=== PATIENT | female | born 1950 | race Caucasian/White ===

== ENCOUNTER 2019-05-05 15:20 | Inpatient (IN) | payer MEDICARE, OTHER ==
[2019-05-05] MEDS ORDERED: Morphine 4 MG/ML VIAL ONE ×2 (16:00→16:28)
[2019-05-05] MEDS ORDERED: Lidocaine 1% w/Epinephrine 1:100K 20 ML VIAL ONE (16:00)
[2019-05-05] MEDS ORDERED: Ketorolac Tromethamine 30 MG/ML VIAL ONE ×2 (16:00→21:22)
--- NOTE | 2019-05-05 16:06 | CT ---
CT HEAD WITHOUT CONTRAST: Technique: Axial tomograms were obtained without IV enhancement. Indications: Fall with head injury. Patient is awake and alert. Trauma evaluation. FINDINGS: There is acute subarachnoid hemorrhage in the anterior right frontal lobe. There may be a small focus of parenchymal hemorrhage within the anterior right cortex. There is also evidence of some subarachnoid hemorrhage in the left para Sylvian cortex. No other hemorrhage. Ventricles have normal size and position. No mass effect. The paranasal sinuses appear well aerated and clear. No evidence of skull fracture identified. IMPRESSION: 1. Acute subarachnoid hemorrhage in the anterior right frontal lobe with possible small parenchymal h emorrhage within the anterior cortex. 2. Subtle subarachnoid hemorrhage in the left para Sylvian region. 3. Findings relayed to Dr. Wade. Code CR. POS: [facility]
--- NOTE | 2019-05-05 16:29 | RAD ---
Left wrist 3 views HISTORY: Injury. FINDINGS: Scaphoid waist and ulnar styloid are intact. Impacted fracture of the distal radius involve s primarily the lateral cortex. No evidence of intra-articular extension. Dorsal tilt is neutral. Radial inclination is maintained. Osteoarthritic changes are most pronounced at the first carpometacarpal joint. IMPRESSION: Impacted distal left radial fracture.
--- NOTE | 2019-05-05 16:29 | RAD ---
EXAM: 2 views of the left hip HISTORY: Left hip pain after fall COMPARISON: None FINDINGS: 2 views of the left hip shows a mildly displaced intertrochanteric femur fracture. No degen erative changes are seen. No soft tissue swelling is present. IMPRESSION: Left intertrochanteric femur fracture
[2019-05-05 16:32] LABS: #Eosinphils 0.1 thou/uL (0.0-0.7); #Lymphocytes 0.6 thou/uL (1.20-3.40); #Monocytes 0.5 thou/uL (0.11-0.59); #Neutrophils 4.8 thou/uL (1.40-6.50); %Basophils 0.5 % (0.0-1.0); %Eosinophils 1.6 % (0.0-10.0); %Lymphocytes 9.8 % (21.0-51.0); %Monocytes 8.1 % (0.0-10.0); Hemoglobin 11.1 g/dL (12.0-16.0); Mean Corpuscular HGB CONC 34.2 g/dL (32.0-36.0); Mean Corpuscular Hemoglobin 34.7 pg (27.0-31.0); Mean Platelet Volume 12.1 fL (7.4-10.4); Platelet Count 31 thou/uL (130-400); RBC Distribution Width 18.1 % (11.5-14.5); Red Blood Cell (RBC) Count 3.19 mill/uL (4.20-5.40)
[2019-05-05 16:43] LABS: INR-International Normal Ratio 0.9; PTT 22.5 SEC (22.9-36.1); Prothrombin Time 12.3 SEC (12.0-14.7)
[2019-05-05 16:45] LABS: Anisocytosis SLIGHT = 6-15 cells (100X) (0-5/hpf); Basophilic Stippling SLIGHT = 1-2 cells (100X) (None Seen); MDiff Complete? YES; Macrocytosis SLIGHT = 6-15 cells (100X) (0-5/hpf); Platelet Morphology Comment Appears Decreased; Polychromasia SLIGHT = 2-3 cells (100X) (0-2/hpf); Tear Drops SLIGHT = 2-5 cells (100X) (0-1/hpf)
[2019-05-05 16:50] LABS: ALT (SGPT) 52 U/L (8-55); AST (SGOT) 23 U/L (5-34); Albumin 3.6 g/dL (3.4-4.8); Alkaline Phosphatase 271 U/L (40-110); Anion Gap 14 mmol/L (10-20); BUN (Urea Nitrogen) 13 mg/dL (9.8-20.1); Calc. Creatinine Clearance 0 mL/min (70-130); Carbon Dioxide 28 mmol/L (23-31); Chloride 99 mmol/L (98-107); Estimated GFR-MDRD 75; Globulin 1.9 g/dL (2.4-3.5); Glucose 342 mg/dL (80-115); Potassium 4.7 mmol/L (3.5-5.1); Protein, Total 5.5 g/dL (6.0-8.3); Sodium 136 mmol/L (136-145)
--- NOTE | 2019-05-05 16:50 | RAD ---
AP PELVIS: Indications: Trauma with injury to left hip. FINDINGS: There is an intertrochanteric fracture involving the left hip. Degenerative changes at both hips with moderate spurring from the left femoral head. Pelvis appears intact. IMPRESSION: Left hip fracture. POS: [facility]
[2019-05-05] MEDS ORDERED: hydrALAZINE 20 MG/ML VIAL SLOW IVP PRN (17:35)
[2019-05-05] MEDS ORDERED: Ondansetron PF 4 MG/2 ML Vial IVP PRN (17:35)
[2019-05-05] MEDS ORDERED: Dextrose 50% Abboject 50 ML SYRINGE SLOW IVP PRN (17:35)
[2019-05-05] MEDS ORDERED: HumaLOG 300 UNITS/3 ML VIAL SC PRN (17:35)
[2019-05-05] MEDS ORDERED: Dextrose 5% in Water 1,000 ML IV PRN (17:35)
[2019-05-05] MEDS ORDERED: traMADol HCl 50 MG TAB PO PRN (17:39)
[2019-05-05] MEDS ORDERED: Diazepam 10 MG/2 ML SYRINGE ONE (18:28)
[2019-05-05] MEDS ORDERED: Ondansetron PF 4 MG/2 ML Vial ONE (18:28)
--- NOTE | 2019-05-05 21:02 | CON ---
DATE OF CONSULTATION: 05/05/2019 This is Bola Dover PA-C dictating a report for Iam Solomon MD. REQUESTING PHYSICIAN: Robert Kennedy DO. CONSULTING PHYSICIAN: Iam Solomon MD REASON FOR CONSULTATION: Left two-part intertrochanteric hip fracture and left distal radius metaphyseal nondisplaced Colles fracture. BRIEF CLINICAL HISTORY: Ayana is a 68-year-old female who fell on an outstretched left arm while stepping up over a curb earlier this morning. She was brought to [facility] via EMS for complaints of left hip pain and left forearm pain. Plain radiographs demonstrated a two-part minimally displaced intertrochanteric hip fracture on the left and a nondisplaced distal radius metaphyseal fracture on the left. Our service has been consulted for both of these injuries. She has also had a right frontal subarachnoid hemorrhage, which is small and localized, and Neurosurgery has been consulted to evaluate that. PAST MEDICAL HISTORY: Significant for chronic myelogenous leukemia, and she recently received a stem cell transplant on 11/29/2018. She has suffered from thrombocytopenia for quite some time now. She is being actively treated for the leukemia. PAST SURGICAL HISTORY: Cholecystectomy. MEDICATION: Please see medication reconciliation list. ALLERGIES: NO KNOWN DRUG ALLERGIES. PHYSICAL EXAMINATION: This elderly frail-appearing female, in no apparent distress. She appears comfortable and appropriate and responsive with examiner, grossly nonfocal. Visual inspection of the left upper extremity demonstrates her to have a bruise over the dorsal forearm with tenderness to palpation after removal of temporary splint. She also has some abrasions over the 4th and 5th MCP joints dorsally, but no angular deformity. She is neurovascularly intact. Good radial pulse. She has good digital excursion. Visual inspection of left lower extremity demonstrates normal external landmarks. There is no shortening or external rotation noted. She is neurovascularly intact in left lower extremity. Hip exam is deferred due to known underlying fracture. Knee exam is essentially benign. No fasciculations or atrophy. No dorsal weakness is noted. IMAGING STUDIES: Three views left wrist demonstrate a [id number] nondisplaced distal radius metaphyseal fracture with little bit of cortical comminution dorsally, but no changes in anatomic reduction. Satisfactory position is appreciated on lateral view. No apex dorsal or volar is appreciated. Two views left hip demonstrate a nondisplaced intertrochanteric hip fracture on the left. IMPRESSION: 1. Left two-part intertrochanteric hip fracture, nondisplaced. 2. Left distal radius metaphyseal fracture, nondisplaced (Colles fracture). PLAN: 1. I placed her in a dorsal cock-up left volar splint now. 2. The risks, benefits, options, alternatives, and rationale for proceeding with open versus closed reduction of the left hip with a dynamic hip screw versus short trochanteric nail fixation has been explained in great detail to the patient, she is ready to proceed. All questions were answered. No guarantee of outcome stated or implied. 3. The patient will be posted for tomorrow. Job ID: [id number]
[2019-05-05] MEDS ORDERED: Cyclobenzaprine 10 MG TAB ONE (21:22)
--- NOTE | 2019-05-05 21:49 | CT ---
CT Brain WO Con HISTORY: Follow-up of intracranial hemorrhage. Status post head injury. COMPARISON: Exam done earlier today. FINDINGS: There is mild ventricular and sulcal prominence. The subarachnoid blood in the right fronta l lobe is again demonstrated it is felt to be fairly similar to the previous exam. Questionable small focus of subarachnoid blood along the left sylvian fissure again noted. IMPRESSION: Essentially stable exam. Subarachnoid blood is similar to the previous study.
[2019-05-05] MEDS: traMADol HCl 50 MG TAB PO PRN (22:36)
[2019-05-05] MEDS: Gabapentin 300 MG CAP PO SCH (22:36)
[2019-05-05] MEDS: Acetaminophen 500 MG TAB PO SCH ×2 (22:36→23:30)
[2019-05-05] MEDS: Famotidine/PF 20 mg/2ml Vial SLOW IVP SCH (23:29)
[2019-05-05] MEDS: Sodium Chloride 0.9% 1,000 ML IV SCH (23:30)
[2019-05-05] MEDS: Senokot S 8.6-50 MG TAB PO SCH (23:30)
[2019-05-05] MEDS ORDERED: Hydrocortisone Sod Succ/PF 100 mg/2 ml Vial IVP SCH (23:45)
[2019-05-06] MEDS ORDERED: Lidocaine 5% Patch TD PRN (00:31)
[2019-05-06] MEDS ORDERED: Lidocaine Patch Removal TOP PRN (00:42)
--- NOTE | 2019-05-06 01:03 | PRG ---
DATE OF SERVICE: 05/06/2019 SUBJECTIVE: The patient is status post ground level fall, when she sustained a left distal radius fracture and a left intertrochanteric femur fracture. The patient's past medical history is significant for stem cell transplant for leukemia. She is currently awaiting surgery. Due to her thrombocytopenia, her surgery has been delayed until tomorrow. Physical exam, the patient was seen in the Emergency Department as her room in upstairs was not available yet. She is resting comfortably. OBJECTIVE: VITAL SIGNS: Stable, and she is afebrile. GENERAL: The patient is resting comfortably in bed. She is awake, alert, conversant, and appropriate. [place] Coma Scale is 15. LUNGS: Clear to auscultation bilaterally. HEART: Regular rate and rhythm. ABDOMEN: Soft, flat, nontender with hypoactive bowel sounds. EXTREMITIES: Neurovascularly intact x4. ASSESSMENT: 1. Status post ground level fall. 2. Left distal radius fracture, nondisplaced being treated conservatively. 3. Left two-part intertrochanteric hip fracture, nondisplaced, awaiting surgery tomorrow. 4. History of leukemia, stem cell transplant, thrombocytopenia. PLAN: Plan will be to monitor her labs, repeat in the morning. She did receive a unit of platelets here in the Emergency Department. Postoperatively, we will begin physical and occupational therapy and discuss placement. Job ID: [id number]
[2019-05-06 02:39] VITALS: BMI 18.7
[2019-05-06 05:46] LABS: #Lymphocytes 0.3 thou/uL (1.20-3.40); #Monocytes 0.4 thou/uL (0.11-0.59); #Neutrophils 3.7 thou/uL (1.40-6.50); %Eosinophils 0.6 % (0.0-10.0); %Lymphocytes 6.4 % (21.0-51.0); %Monocytes 9.1 % (0.0-10.0); %Neutrophils 83.8 % (42.0-75.0); Hemoglobin 6.9 g/dL (12.0-16.0); Mean Corpuscular HGB CONC 34.6 g/dL (32.0-36.0); Mean Corpuscular Hemoglobin 35.4 pg (27.0-31.0); Mean Platelet Volume 8.9 fL (7.4-10.4); Platelet Count 39 thou/uL (130-400); RBC Distribution Width 17.7 % (11.5-14.5); Red Blood Cell (RBC) Count 1.96 mill/uL (4.20-5.40); White Blood Cell (WBC) Count 4.4 thou/uL (4.8-10.8)
[2019-05-06] MEDS ORDERED: Hydrocortisone Sod Succ/PF 100 mg/2 ml Vial IVP SCH (06:00)
[2019-05-06 06:02] LABS: Magnesium 1.8 mg/dL (1.6-2.6); Phosphorus 2.7 mg/dL (2.3-4.7)
[2019-05-06] MEDS: Acetaminophen 500 MG TAB PO SCH ×4 (06:17→23:45)
[2019-05-06] MEDS: traMADol HCl 50 MG TAB PO PRN ×2 (06:17→16:28)
[2019-05-06] MEDS: Mometasone/Formoterol 120 PUFF INHALER INH SCH ×2 (06:44→19:10)
[2019-05-06] MEDS: Sodium Chloride 0.9% 1,000 ML IV SCH ×3 (07:25→17:51)
--- NOTE | 2019-05-06 08:10 | HP ---
REQUESTING PHYSICIAN: Dr. Ernie Wade. CONSULTING PHYSICIANS: Dr. Solomon, Orthopedic, Dr. Jaren Suggs, Neurosurgeon. HISTORY OF PRESENT ILLNESS: Ms. Esparza is a 68-year-old female presented to the ED after a fall. The patient reports she will walk without walker, usually the patient walks with walker, and today she decided not to walk with a walker but walks slowly, come up to the step of the convenience store, her legs gave out, she fell on her left side. After a fall, she experienced left hip pain and unable to bear weight. The patient was brought to the ED via EMS. Upon arrival in the ED, the patient is alert and awake. GCS 15. Vital signs stable, complained of pain from the left hip. REVIEW OF SYSTEMS: Noncontributory except per HPI. PAST MEDICAL HISTORY: Leukemia, treated with the chemotherapy and on November 2018, she got stem cell transplant. She is not be able to have any live vaccinations. PAST SURGICAL HISTORY: Cholecystectomy. SOCIAL HISTORY: The patient lives at home. Denies alcohol. Denies drug use. Denies smoking history. PHYSICAL EXAMINATION: GENERAL: The patient is lying in bed comfortable with no acute respiratory distress. Complains of pain from the left hip. The patient is alert and awake. GCS 15. VITAL SIGNS: Blood pressure 130/60, respiratory rate is 17, O2 saturation 98% on room air, heart rate is 100, and temperature 99.3. HEENT: Lacerations, one was 5 cm lateral on left forehead. It was sutured by ED doctor. Bleeding stopped. NECK: Trachea midline. No tender to palpation. CHEST: Atraumatic. No bruising. No tender to palpation. LUNGS: Clear bilaterally. HEART: Regular rate and rhythm. ABDOMEN: Nondistended. No deformity. No bruising. No tender to palpation. No rebound. Bowel sounds active. PELVIS: Stable. EXTREMITIES: Left hip pain, limited range of motion. Neurovascularly intact x4. NEUROLOGIC: No focal neurology deficits. IMAGING STUDIES: Brain CT scan shows acute subarachnoid hemorrhage in the anterior frontal lobe, subtle subarachnoid hemorrhage. Hip x-ray shows left intertrochanteric femur fracture. Left wrist x-ray shows impacted distal left radial fracture. LABORATORY DATA: Laboratory shows white count 6000, hemoglobin 11.1, and platelet 31,000. Sodium 136, potassium 4.7, creatinine is 0.76. ASSESSMENT: 1. Status post ground level fall. 2. Subarachnoid hemorrhage. Small subdural hematoma. Neurological intact. 3. Left hip fracture. 4. Left impacted radius fracture. History of leukemia with a stem cell transplant. 5. History of hypertension. PLAN: The patient will be admitted to [place] [facility] for pain control. The patient was ordered 1 unit of platelet prepare for surgery. Dr. Solomon will take the patient to the OR later today or tomorrow. The patient will be n.p.o. now. Initiate nonpharmacological DVT prophylaxis. Initiate gastritis prophylaxis and pulmonary toilet. Postop, the patient will need to work with PT/OT. Anticipate placement in rehabilitation facility. Dr. Rey is notified. Job ID: [id number]
[2019-05-06] MEDS ORDERED: HumaLOG 300 UNITS/3 ML VIAL SC PRN (08:37)
--- NOTE | 2019-05-06 08:52 | PRG ---
DATE OF SERVICE: 05/06/2019 Ms. Esparza was admitted yesterday after a fall with hip fracture and right-sided frontal intracerebral hemorrhage likely subarachnoid in nature. A repeat scan last night was stable, which is excellent and given her platelet count of 31 initially and then only 39 after administration of a unit of platelets. From neurosurgery standpoint, this represents a nonsurgical hemorrhage, although, blood pressure would be best held under 160, and likely re-administration of platelets at the discretion of the primary team, Neurosurgery's followup, plan will be in 4 to 6 weeks in the outpatient setting with repeat CTA at that time. Until then, would recommend remaining off blood thinners, so understandably she will need some during the recovery of her orthopedic surgery scheduled for this afternoon. Job ID: [id number]
[2019-05-06] MEDS: Polyethylene Glycol 3350 17 GM Packet PO SCH (08:53)
[2019-05-06] MEDS: Famotidine/PF 20 mg/2ml Vial SLOW IVP SCH ×2 (08:53→22:16)
[2019-05-06] MEDS: Senokot S 8.6-50 MG TAB PO SCH ×2 (08:53→22:16)
[2019-05-06] MEDS: Gabapentin 300 MG CAP PO SCH ×2 (08:54→22:16)
[2019-05-06] MEDS: Folic Acid 1 MG TAB PO SCH (08:54)
[2019-05-06] MEDS: valACYclovir 500 MG TAB PO SCH (08:54)
[2019-05-06] MEDS: Tacrolimus 0.5 MG CAP PO SCH ×2 (08:54→22:17)
[2019-05-06] MEDS: Sulfameth/Trimethoprim SS 400-80MG TAB PO SCH (08:56)
[2019-05-06] MEDS ORDERED: Ergocalciferol 1.25 MG(50,000 UNITS) CAP PO SCH (09:00)
[2019-05-06] MEDS ORDERED: predniSONE 5 MG TAB PO SCH (09:00)
[2019-05-06] MEDS: Hydrocortisone Sod Succ/PF 100 mg/2 ml Vial IVP SCH ×2 (09:01→16:28)
[2019-05-06] MEDS: Thiamine 100 MG TAB PO SCH (09:06)
[2019-05-06] MEDS: Ursodiol 300 MG CAP PO SCH ×2 (09:07→22:36)
[2019-05-06] MEDS ORDERED: Lidocaine 1% PF 5 ML VIAL ONE (10:46)
[2019-05-06] MEDS ORDERED: Ondansetron PF 4 MG/2 ML Vial ONE (10:46)
[2019-05-06] MEDS ORDERED: Rocuronium Bromide 10 MG/ML (10ML VIAL) ONE (10:46)
[2019-05-06] MEDS ORDERED: Glycopyrrolate 0.2 MG/ML 5 ML SYRINGE ONE (10:46)
[2019-05-06] MEDS ORDERED: PROPOFOL 200 MG/20 ML VIAL ONE (10:46)
[2019-05-06] MEDS ORDERED: PHENYLEPHRINE-NS 100 MCG/ML 10 ML SYRINGE ONE (10:46)
[2019-05-06] MEDS ORDERED: Fentanyl 100 MCG/2 ML VIAL ONE ×2 (12:58→14:40)
[2019-05-06] MEDS ORDERED: Phenylephrine HCL 10 MG/ML VIAL ONE (13:11)
[2019-05-06] MEDS ORDERED: Promethazine HCl 25 MG/ML VIAL SLOW IVP PRN (14:09)
[2019-05-06] MEDS ORDERED: Promethazine HCl 25 MG/ML VIAL IM PRN (14:09)
[2019-05-06] MEDS ORDERED: PACU-Morphine 4MG/ML VIAL SLOW IVP PRN (14:09)
--- NOTE | 2019-05-06 14:11 | PRG ---
DATE OF SERVICE: 05/06/2019 SUBJECTIVE: Ms. Esparza is a 68-year-old female patient, sustained a ground-level fall resulting in a left distal radius fracture, treated nonoperatively, and a left intertrochanteric femur fracture. The patient is hospital day #1, doing well. Pain is generally controlled. She is scheduled for the OR today with Orthopedics. Her hemoglobin dropped to 6.9. This morning, she has been given 1 unit of PRBCs. She is on oral steroids at home for her known leukemia status post stem cell transplant, which I will resume the same after stress-dose steroids. We will follow up the patient after surgery. She is n.p.o. at this time. OBJECTIVE: Today, VITAL SIGNS: Temperature is 98.0, blood pressure is 105/65, and heart rate 88. She is breathing 16 times per minute and saturating 96% on room air. GENERAL: This is a 68-year-old female, sitting up, in no acute distress. HEENT: Normocephalic and atraumatic. Trachea is midline. No JVD is appreciated. RESPIRATORY: Equal rise and fall. Bilateral breath sounds. Clear to auscultation in upper and lower lobes bilaterally. CARDIOVASCULAR: Regular rate and rhythm. No murmur. Strong pulses. ABDOMEN: Soft and nontender. PELVIS: She has a left pelvic fracture. MUSCULOSKELETAL: She has sensation in all extremities. She has a splint to the upper extremity. LABORATORY DATA: From today; phos of 2.7 and mag of 1.8. White blood cell count is 4.4, platelets are 39, hemoglobin and hematocrit of 6.9 and 20.1 respectively. ASSESSMENT: 1. Ground-level fall. 2. Left radius fracture. 3. Left intertrochanteric hip fracture. 4. History of hypertension. 5. History of leukemia, stem cell transplant, on exogenous steroids. 6. Small subarachnoid hemorrhage, stable status post one platelet transfusion for the same at time of arrival. PLAN: 1. Orthopedics has been consulted, appreciate assistance. 2. Plan for OR today. 3. Platelets on hold for ER. 4. One PRBCs now. 5. Pain control as needed. 6. We will follow up after surgery. Continue all other supportive care. The patient was seen with Dr. Robert Kennedy. Plan can be updated as needed. Job ID: [id number]
[2019-05-06] MEDS ORDERED: Cyclobenzaprine 10 MG TAB PO PRN (18:56)
--- NOTE | 2019-05-06 19:22 | RAD ---
LEFT HIP TWO VIEWS: 05/06/19 HISTORY: Intraoperative films. These films show a Vaz compression screw stabilizing intertrochanteric fracture in satisfactory position. IMPRESSION: Postop open reduction and internal fixation of intertrochanteric fracture of the left hip with Dimas ds type compression screw and side plate. POS: [facility]
--- NOTE | 2019-05-06 21:38 | OP ---
DATE OF PROCEDURE: 05/06/2019 PREOPERATIVE DIAGNOSIS: Left intertrochanteric femur fracture. POSTOPERATIVE DIAGNOSIS: Left intertrochanteric femur fracture. PROCEDURE PERFORMED: Open reduction and internal fixation of left intertrochanteric femur fracture. ANESTHESIA: General. STNA: Sonny. IMPLANT: Synthes DHS 135-degree 3-hole sideplate with 90 mm hip screw. ESTIMATED BLOOD LOSS: 50 mL. COMPLICATIONS: None. DRAINS: None. SPECIMEN: None. OUTCOME: Near-anatomic alignment. INDICATIONS FOR PROCEDURE: The patient is a 68-year-old lady, status post ground level fall when she tripped over a curb, sustaining a two-part left intertrochanteric femur fracture. After discussion with the patient including risks and benefits, we have decided to proceed with stabilization with DHS device. Informed consent has been obtained. I believe all questions have been answered. DESCRIPTION OF PROCEDURE: The patient was brought to the operating room and a time-out performed followed by induction of general anesthesia. Next, the patient was positioned supine on the fracture table with the injured extremity held in longitudinal traction and slight internal rotation. The well leg was scissored to allow for AP and lateral C-arm imaging of this left hip. Next, a sterile prep and drape was performed of the left lateral thigh. Under C-arm localization, incision was made laterally and after skin was sharply incised, dissection was carried down through the subcutaneous fat to the fascia jazlyn. This fascia jazlyn was incised in line with the skin incision as well, exposing the underlying fascia of the vastus lateralis. Next, the fascia of the vastus lateralis was incised and the muscle belly reflected anteriorly, gaining access to the lateral cortex of the femur. 135-degree jig was used to pass a threaded guidewire across the lateral cortex of the femur up the femoral neck into the femoral head approaching a [id number] position on both AP and lateral images. Once appropriately positioned, measurement was taken off this guidewire and then the step drill was used to further prepare the femoral neck and head to accept the dynamic hip screw. Next, a 135-degree 3-hole sideplate with 90 mm hip screw was passed over this threaded guidewire, delivering it up into the femoral head with the plate affixed to the lateral cortex of the femur. The wire was then removed and the plate affixed with a total of three 4.5 mm cortical screws. Final AP and lateral C-arm imaging was obtained that showed anatomic alignment of the fracture. The wound was irrigated with bulb syringe, then closed in layers with 0 Vicryl for the fascia jazlyn, 2-0 Vicryl subcutaneously and gaby for the skin. Xeroform gauze and tape dressing was applied to the lateral thigh and then the patient was transferred to recovery room in stable condition. There were no complications. The patient tolerated the procedure well. Job ID: [id number]
[2019-05-06] MEDS: ceFAZolin 1 GM/D5W 1 GM in Premix Bag 1 BAG IVPB SCH (22:16)
--- NOTE | 2019-05-07 01:34 | PRG ---
DATE OF SERVICE: 05/06/2019 SUBJECTIVE: Patient was seen this evening during rounds. She was resting comfortably and asleep with no signs of acute distress. Nursing reported no acute events. OBJECTIVE: VITAL SIGNS: Temperature 97.8, pulse 95, respirations 18, oxygen saturation 96% on 1 L nasal cannula, blood pressure 132/66. GENERAL: Well-appearing elderly female, lying in bed with no signs of acute distress. PULMONARY: Equal chest rise and fall. No signs of acute respiratory distress. ASSESSMENT: 1. Status post mechanical fall. 2. Subarachnoid hemorrhage, stable. 3. Left hip fracture, status post repair. 4. Distal radius fracture, nonoperative. 5. Pancytopenia. 6. History of leukemia and hypertension. PLAN: Continue current diet and pain regimen. Continue physical and occupational therapy. The patient did receive 1 unit of packed cells today and platelets as well. We will repeat blood work in the morning to assess that she is stable since she is postoperative day zero today. She will continue to work with Physical and Occupational Therapy. She is pending placement at acute rehab facility. Job ID: [id number]
[2019-05-07 05:30] LABS: #Lymphocytes 0.4 thou/uL (1.20-3.40); #Monocytes 0.5 thou/uL (0.11-0.59); #Neutrophils 3.4 thou/uL (1.40-6.50); %Basophils 0.4 % (0.0-1.0); %Eosinophils 0.3 % (0.0-10.0); %Lymphocytes 9.3 % (21.0-51.0); Hemoglobin 7.1 g/dL (12.0-16.0); Mean Corpuscular HGB CONC 33.5 g/dL (32.0-36.0); Mean Corpuscular Hemoglobin 33.9 pg (27.0-31.0); Mean Platelet Volume 9.9 fL (7.4-10.4); Platelet Count 29 thou/uL (130-400); RBC Distribution Width 18.7 % (11.5-14.5); White Blood Cell (WBC) Count 4.3 thou/uL (4.8-10.8)
[2019-05-07 05:51] LABS: Anion Gap 8 mmol/L (10-20); BUN (Urea Nitrogen) 14 mg/dL (9.8-20.1); Calc. Creatinine Clearance 71 mL/min (70-130); Calcium 7.9 mg/dL (7.8-10.44); Carbon Dioxide 27 mmol/L (23-31); Chloride 105 mmol/L (98-107); Estimated GFR-MDRD Greater than 90; Glucose 182 mg/dL (80-115); Magnesium 1.7 mg/dL (1.6-2.6); Potassium 4.3 mmol/L (3.5-5.1); Sodium 136 mmol/L (136-145)
[2019-05-07] MEDS: ceFAZolin 1 GM/D5W 1 GM in Premix Bag 1 BAG IVPB SCH ×2 (05:56→12:12)
[2019-05-07] MEDS: Acetaminophen 500 MG TAB PO SCH ×3 (05:57→18:02)
[2019-05-07] MEDS: traMADol HCl 50 MG TAB PO PRN (06:02)
[2019-05-07] MEDS: Mometasone/Formoterol 120 PUFF INHALER INH SCH ×2 (07:44→19:18)
[2019-05-07] MEDS: Ascorbic Acid 500 mg Chewable Tablet PO SCH ×2 (08:52→19:57)
[2019-05-07] MEDS: Gabapentin 300 MG CAP PO SCH ×3 (08:52→20:47)
[2019-05-07] MEDS: Montelukast Sodium 10 mg Tablet PO SCH (08:52)
[2019-05-07] MEDS: predniSONE 5 MG TAB PO SCH (08:52)
[2019-05-07] MEDS: Ferrous Sulfate 325 MG TAB PO SCH ×2 (08:53→18:02)
[2019-05-07] MEDS: Folic Acid 1 MG TAB PO SCH (08:53)
[2019-05-07] MEDS: Thiamine 100 MG TAB PO SCH (08:53)
[2019-05-07] MEDS: Senokot S 8.6-50 MG TAB PO SCH ×2 (08:53→19:56)
[2019-05-07] MEDS: Ursodiol 300 MG CAP PO SCH ×2 (08:54→19:57)
[2019-05-07] MEDS: Polyethylene Glycol 3350 17 GM Packet PO SCH (08:54)
[2019-05-07] MEDS: valACYclovir 500 MG TAB PO SCH (08:54)
[2019-05-07] MEDS: Sulfameth/Trimethoprim SS 400-80MG TAB PO SCH (08:56)
[2019-05-07] MEDS: Tacrolimus 0.5 MG CAP PO SCH ×2 (08:56→19:57)
[2019-05-07] MEDS: traMADol HCl 50 MG TAB PO SCH ×3 (10:49→19:56)
--- NOTE | 2019-05-07 18:22 | PRG ---
DATE OF SERVICE: 05/07/2019 SUBJECTIVE: The patient remains on the surgical floor. She is status post ground level fall when she sustained a left radius fracture that is being treated nonoperatively. She is status post open reduction and internal fixation of a left hip fracture. She also currently is on any rejection medications for stem cell transplant for her leukemia. Overnight, she had no issues. This morning, she reports that her pain is controlled. She is scheduled to work with Physical Therapy. OBJECTIVE: VITAL SIGNS: Temperature is 98.9, heart rate 104, blood pressure 123/82, respirations 16, oxygen saturation 95% on room air. GENERAL: The patient is resting comfortably in bed. She appears comfortable. She is awake, alert, and oriented. NEUROLOGIC: [place] Coma Scale is 15. HEENT: Unremarkable. LUNGS: Nonlabored. Clear bilaterally. HEART: Regular rate and rhythm. ABDOMEN: Soft, nontender with hypoactive bowel sounds. EXTREMITIES: Neurovascularly intact x4. Postop dressing is clean, dry, intact. LABORATORY FINDINGS: White blood cell count 4.3, hemoglobin 7.1, hematocrit 21.3, platelets 29. Sodium 136, potassium 4.3, chloride 105, CO2 of 27, BUN 14, creatinine 0.62, glucose 182, magnesium 1.7, phosphorus 4.0. There are no radiographs reviewed this morning. ASSESSMENT: 1. Status post ground level fall. 2. Left distal radius fracture, treated in a splint. 3. Status post open reduction and internal fixation of left intertrochanteric hip fracture. 4. History of leukemia, stem cell transplant on antirejection medications and steroids. 5. Small subarachnoid hemorrhage. 6. Chronic thrombocytopenia. PLAN: Plan will be to continue on supportive care. Encourage physical and occupational therapy. Work on placement and repeat her labs in the morning and likely begin heparin for chemical VTE prophylaxis at that time. The patient was evaluated this morning during rounds with Dr. Kennedy. Job ID: [id number]
[2019-05-07 19:32] LABS: #Lymphocytes 0.3 thou/uL (1.20-3.40); #Monocytes 0.4 thou/uL (0.11-0.59); #Neutrophils 3.8 thou/uL (1.40-6.50); %Eosinophils 0.2 % (0.0-10.0); %Lymphocytes 6.6 % (21.0-51.0); %Monocytes 9.5 % (0.0-10.0); %Neutrophils 83.7 % (42.0-75.0); Mean Corpuscular HGB CONC 33.8 g/dL (32.0-36.0); Mean Corpuscular Hemoglobin 34.3 pg (27.0-31.0); Platelet Count 28 thou/uL (130-400); RBC Distribution Width 18.4 % (11.5-14.5); Red Blood Cell (RBC) Count 2.04 mill/uL (4.20-5.40); White Blood Cell (WBC) Count 4.5 thou/uL (4.8-10.8)
[2019-05-07 19:50] LABS: Anion Gap 11 mmol/L (10-20); BUN (Urea Nitrogen) 15 mg/dL (9.8-20.1); Calc. Creatinine Clearance 66 mL/min (70-130); Calcium 8.3 mg/dL (7.8-10.44); Carbon Dioxide 27 mmol/L (23-31); Chloride 103 mmol/L (98-107); Estimated GFR-MDRD 87; Glucose 238 mg/dL (80-115); Magnesium 1.8 mg/dL (1.6-2.6); Phosphorus 3.9 mg/dL (2.3-4.7); Potassium 4.7 mmol/L (3.5-5.1); Sodium 136 mmol/L (136-145)
[2019-05-07] MEDS ORDERED: Magnesium 2 GM/50 ML 2 GM in Premix Bag 1 BAG IVPB SCH (21:00)
--- NOTE | 2019-05-07 23:39 | PRG ---
DATE OF SERVICE: 05/07/2019 SUBJECTIVE: The patient was seen this evening, lying in bed and asleep, but no signs of acute distress. Nursing reported earlier this afternoon that the patient was looking weak and not as good as this morning. Repeat blood work was done by the day team, which demonstrated a hemoglobin of 7.0 and stable low platelet count. The patient's kidney function and electrolytes were unchanged. At the time of my evaluation, the patient was resting comfortably and asleep. She does continue to remain mildly tachycardic, but her blood pressures have been okay. OBJECTIVE: VITAL SIGNS: Temperature 97.9, pulse 110, respirations 18, oxygen saturation 95% on room air, and blood pressure 118/76. GENERAL: Elderly female, lying in bed with no signs of acute distress. PULMONARY: Equal chest rise and fall. No signs of acute respiratory distress. ASSESSMENT: 1. Status post fall. 2. Subarachnoid hemorrhage. 3. Left hip fracture, status post repair. 4. Left distal radius fracture, nonoperative. 5. Pancytopenia. 6. Acute blood loss anemia, stable. 7. History of leukemia and hypertension. PLAN: Continue current diet and pain regimen. Continue physical and occupational therapy. We will continue to hold on chemo DVT prophylaxis, but continue mechanical DVT prophylaxis. We will continue to closely monitor her hemodynamics and heart rate. Repeat blood work in the morning. We will transfuse the patient if the hemoglobin is less than 7.0, or if the patient becomes symptomatic. Job ID: [id number]
[2019-05-08] MEDS: Acetaminophen 500 MG TAB PO SCH ×5 (00:11→23:52)
[2019-05-08] MEDS: traMADol HCl 50 MG TAB PO SCH ×4 (02:31→19:33)
[2019-05-08 05:34] LABS: #Lymphocytes 0.4 thou/uL (1.20-3.40); #Monocytes 0.4 thou/uL (0.11-0.59); #Neutrophils 3.3 thou/uL (1.40-6.50); %Eosinophils 0.4 % (0.0-10.0); %Lymphocytes 8.7 % (21.0-51.0); %Monocytes 9.7 % (0.0-10.0); %Neutrophils 81.1 % (42.0-75.0); Mean Corpuscular HGB CONC 34.1 g/dL (32.0-36.0); Mean Platelet Volume 9.4 fL (7.4-10.4); Platelet Count 30 thou/uL (130-400); RBC Distribution Width 18.5 % (11.5-14.5); Red Blood Cell (RBC) Count 1.99 mill/uL (4.20-5.40); White Blood Cell (WBC) Count 4.1 thou/uL (4.8-10.8)
[2019-05-08 05:57] LABS: Anion Gap 10 mmol/L (10-20); BUN (Urea Nitrogen) 15 mg/dL (9.8-20.1); Calc. Creatinine Clearance 69 mL/min (70-130); Calcium 8.3 mg/dL (7.8-10.44); Carbon Dioxide 29 mmol/L (23-31); Chloride 103 mmol/L (98-107); Estimated GFR-MDRD Greater than 90; Glucose 172 mg/dL (80-115); Magnesium 2.2 mg/dL (1.6-2.6); Potassium 4.5 mmol/L (3.5-5.1); Sodium 137 mmol/L (136-145)
[2019-05-08] MEDS: Mometasone/Formoterol 120 PUFF INHALER INH SCH ×2 (07:05→19:26)
[2019-05-08] MEDS: Ferrous Sulfate 325 MG TAB PO SCH ×2 (08:46→16:10)
[2019-05-08] MEDS: Montelukast Sodium 10 mg Tablet PO SCH (08:47)
[2019-05-08] MEDS: Folic Acid 1 MG TAB PO SCH (08:47)
[2019-05-08] MEDS: Gabapentin 300 MG CAP PO SCH ×3 (08:48→19:34)
[2019-05-08] MEDS: Thiamine 100 MG TAB PO SCH (08:48)
[2019-05-08] MEDS: Ascorbic Acid 500 mg Chewable Tablet PO SCH ×2 (08:48→19:33)
[2019-05-08] MEDS: Polyethylene Glycol 3350 17 GM Packet PO SCH (08:50)
[2019-05-08] MEDS: predniSONE 5 MG TAB PO SCH (08:50)
[2019-05-08] MEDS: Senokot S 8.6-50 MG TAB PO SCH ×2 (08:50→19:34)
[2019-05-08] MEDS: Ursodiol 300 MG CAP PO SCH ×2 (08:51→19:33)
[2019-05-08] MEDS: Tacrolimus 0.5 MG CAP PO SCH ×2 (08:51→19:33)
[2019-05-08] MEDS: valACYclovir 500 MG TAB PO SCH (08:53)
[2019-05-08] MEDS: Sulfameth/Trimethoprim SS 400-80MG TAB PO SCH (08:53)
[2019-05-08] MEDS: traMADol HCl 50 MG TAB PO PRN (13:57)
--- NOTE | 2019-05-08 14:08 | PRG ---
DATE OF SERVICE: 05/08/2019 SUBJECTIVE: The family member reports that the patient was having some "sundowning" and was not acting herself in mentation. They held the gabapentin last night which seemed to improve her mentation. The patient was getting lightheaded somewhat and short of breath with physical therapy yesterday. Her hemoglobin was noted to be 7.0. She is chronically thrombocytopenic. She was having some pain when she woke up this morning because she refused her tramadol last night, but when she got her medicine this morning, her pain had improved. OBJECTIVE: VITAL SIGNS: This morning, afebrile, O2 saturation of 92% on room air, blood pressure 139/75, heart rate 82, respirations 14. CONSTITUTIONAL: Well-appearing. Somewhat tired in appearance and a bit slow to answer questions. RESPIRATORY: No acute respiratory distress. CARDIAC: Regular rate and rhythm. No murmur. GI: Abdomen is soft and nondistended. EXTREMITIES: Warm and well perfused. ASSESSMENT: 1. Status post fall. 2. Subarachnoid hemorrhage, stable. 3. Left hip fracture, status post repair postop day #2. 4. Pancytopenia. 5. Acute blood loss anemia, stable. 6. History of leukemia and hypertension. PLAN: Continue current diet and pain regimen. Continue physical and occupational therapy. We would like to anticoagulate the patient since she had a large bone surgery and is not quite yet ambulatory. However, this is complicated by her chronic thrombocytopenia. She has platelet count today at 30, which is near her baseline. There is a risk for starting heparin due to the risk of heparin- induced thrombocytopenia. Therefore, we have recommended to the patient today of placement of an inferior vena cava filter by Cardiovascular Surgery. The patient and family members have requested that we contact her stem cell transplant doctor, Dr. Bailey to discuss this prior to the procedure. I have placed a call to Dr. Bailey's office today and I am awaiting a call back. Once I hear from her stem cell transplant doctor, I will place the consult for IVC filter placement by Cardiovascular Surgery. For her oxygen saturation of 92%, she can have supplemental oxygen and incentive spirometry. We will continue to monitor her hemoglobin. If it drops below 7 or if she becomes symptomatic, we will transfuse. Job ID: [id number] [id number]
[2019-05-08] MEDS ORDERED: Ondansetron ODT 8 MG TAB PO PRN (17:18)
[2019-05-08] MEDS: Magnesium Oxide 400 MG TAB PO SCH (19:33)
--- NOTE | 2019-05-08 20:21 | CON ---
DATE OF CONSULTATION: 05/08/2019 REQUESTING PHYSICIAN: Rochelle Cardenas MD REASON FOR CONSULTATION: IVC filter placement. HISTORY OF PRESENT ILLNESS: The patient is a 68-year-old woman, who about 6 months ago underwent stem cell transplant for CML. She chronically runs a platelet count of around 30,000. She has recently been walking with a walker because of some debilitation related to that and she tripped and fell, breaking her hip. She underwent ORIF of her left intertrochanteric femur fracture on the . She remains poorly ambulatory. PAST MEDICAL HISTORY: Otherwise, unremarkable. HOME MEDICATIONS: Include; 1. . 2. Symbicort. 3. Valacyclovir. 4. Vitamin D. 5. Actigall. 6. Prograf. 7. Bactrim. 8. Posaconazole. REVIEW OF SYSTEMS: Negative for any shortness of breath. PHYSICAL EXAMINATION: GENERAL: She has a Band-Aid on her forehead. She is in no distress. VITAL SIGNS: Heart rates in the 110s, blood pressure 130/80, and temperature is 98.9. EXTREMITIES: She has no tenderness in her calves. LABORATORY DATA: Her platelet count is 30,000. IMPRESSION AND RECOMMENDATIONS: Hip fracture patient, chronic thrombocytopenia with contraindications to Lovenox and heparin. Been requested to place an IVC filter for pulmonary embolism prophylaxis should she develop deep venous thrombosis, which is not an unreasonable consideration. Job ID: [id number]
--- NOTE | 2019-05-08 23:20 | PRG ---
DATE OF SERVICE: 05/08/2019 SUBJECTIVE: The patient was seen this evening, lying in bed and asleep. She was resting comfortably with no signs of acute distress. Nursing reported no acute events. Dr. Mejia saw the patient for evaluation of IVC filter placement. It appears he has planned to do it tomorrow. OBJECTIVE: VITAL SIGNS: Temperature 98, pulse 96, respirations 16, oxygen saturation 93% on room air, and blood pressure 126/77. GENERAL: Ill-appearing elderly female, lying in bed with no signs of acute distress. PULMONARY: Equal chest rise and fall. No signs of acute respiratory distress. ASSESSMENT: 1. Status post fall. 2. Subarachnoid hematoma. 3. Left hip fracture, status post repair. 4. Left distal radius fracture, nonoperative. 5. Pancytopenia, stable. 6. History of leukemia and hypertension. PLAN: Continue current diet and pain regimen. The patient will be n.p.o. for placement of IVC filter tomorrow by Dr. Mejia. Job ID: [id number]
[2019-05-09] MEDS: traMADol HCl 50 MG TAB PO SCH ×4 (04:48→21:41)
[2019-05-09] MEDS: Acetaminophen 500 MG TAB PO SCH ×3 (05:47→17:35)
[2019-05-09] MEDS: Mometasone/Formoterol 120 PUFF INHALER INH SCH ×2 (07:25→19:26)
[2019-05-09 09:48] LABS: INR-International Normal Ratio 0.9; PTT 28.8 SEC (22.9-36.1); Prothrombin Time 12.1 SEC (12.0-14.7)
[2019-05-09 09:51] LABS: Anion Gap 10 mmol/L (10-20); BUN (Urea Nitrogen) 15 mg/dL (9.8-20.1); Calc. Creatinine Clearance 79 mL/min (70-130); Calcium 8.7 mg/dL (7.8-10.44); Carbon Dioxide 29 mmol/L (23-31); Chloride 104 mmol/L (98-107); Estimated GFR-MDRD Greater than 90; Glucose 123 mg/dL (80-115); Magnesium 1.9 mg/dL (1.6-2.6); Potassium 5.1 mmol/L (3.5-5.1); Sodium 138 mmol/L (136-145)
[2019-05-09] MEDS: Gabapentin 300 MG CAP PO SCH ×3 (10:00→21:20)
[2019-05-09] MEDS ORDERED: Sodium Chloride 0.9% 1,000 ML IV SCH (10:15)
[2019-05-09 10:16] LABS: Anisocytosis SLIGHT = 6-15 cells (100X) (0-5/hpf); Band 2 % (5-11); Hemoglobin 6.8 g/dL (12.0-16.0); Lymphocytes 12 % (21-51); MDiff Complete? YES; Macrocytosis MODERATE=16-30 cells (100X) (0-5/hpf); Mean Corpuscular HGB CONC 28.1 g/dL (32.0-36.0); Mean Corpuscular Hemoglobin 30.8 pg (27.0-31.0); Metamyelocyte 1 % (0-0); Monocytes 6 % (0-10); Neutrophil 79 % (42-75); Nucleated RBC 1 % (0); Platelet Count 31 thou/uL (130-400); Platelet Morphology Comment Appears Decreased; Polychromasia SLIGHT = 2-3 cells (100X) (0-2/hpf); RBC Distribution Width 18.7 % (11.5-14.5); Tear Drops SLIGHT = 2-5 cells (100X) (0-1/hpf); White Blood Cell (WBC) Count 4.2 thou/uL (4.8-10.8)
[2019-05-09] MEDS: predniSONE 5 MG TAB PO SCH ×2 (10:27→17:35)
[2019-05-09] MEDS: Ascorbic Acid 500 mg Chewable Tablet PO SCH ×2 (10:27→21:41)
[2019-05-09] MEDS: Ferrous Sulfate 325 MG TAB PO SCH ×2 (10:27→17:35)
[2019-05-09] MEDS: Magnesium Oxide 400 MG TAB PO SCH ×4 (10:28→21:41)
[2019-05-09] MEDS: Sulfameth/Trimethoprim SS 400-80MG TAB PO SCH ×2 (10:29→17:35)
[2019-05-09] MEDS: Senokot S 8.6-50 MG TAB PO SCH ×2 (10:29→21:41)
[2019-05-09] MEDS: Polyethylene Glycol 3350 17 GM Packet PO SCH (10:29)
[2019-05-09] MEDS: valACYclovir 500 MG TAB PO SCH (10:32)
[2019-05-09] MEDS: Thiamine 100 MG TAB PO SCH (10:33)
[2019-05-09] MEDS: Montelukast Sodium 10 mg Tablet PO SCH (10:33)
[2019-05-09] MEDS: Folic Acid 1 MG TAB PO SCH (10:34)
[2019-05-09] MEDS: Tacrolimus 0.5 MG CAP PO SCH ×2 (10:34→21:40)
[2019-05-09] MEDS: Eltrombopag Olamine [Promacta] 50 MG PO SCH (10:36)
[2019-05-09] MEDS ORDERED: Heparin (Artline) 500 ML ONE (10:49)
[2019-05-09] MEDS ORDERED: Fentanyl 100 MCG/2 ML VIAL ONE ×2 (11:35→13:32)
[2019-05-09] MEDS: Ursodiol 300 MG CAP PO SCH ×2 (11:59→21:40)
--- NOTE | 2019-05-09 15:09 | PQF ---
DATE: 05-09-19 ATTN: DR. KIM CLANCY Please exercise your independent, professional judgment in responding to the clarification form. Clinical indicators are provided on the bottom of this form for your review Please check appropriate box(s): Pancytopenia due to: [ ] Pancytopenia [x] Pancytopenia due to Chemotherapy/antineoplastic drugs [ ] Pancytopenia due to Leukemia [ ] Other diagnosis [ ] Unable to determine In addition, please specify: Present on Admission (POA): [x] Yes [ ] No [ ] Unable to determine For continuity of documentation, please document condition throughout progress notes and discharge summary. Thank You. CLINICAL INDICATORS - SIGNS / SYMPTOMS / LABS/ RESULTS AND LOCATION IN MR: WBC: 05-06-19: 4.4 05-07-19: 4.3, 4.5 05-08-19: 4.1 05-09-19: 4.2 RBC: 05-05-19: 3.19 05-06-19: 1.96 05-07-19: 2.10, 2.04 05-08-19: 1.99 05-09-19: 2.20 HH: 05-05-19: 11.1 / 32.4 05-06-19: 6.9 / 20.1 05-07-19: 7.1, 7.0 / 21.3, 20.7 05-08-19: 7.0 / 20.4 05-09-19: 6.8 / 24.0 H&P 05-05-19: LEUKEMIA, TREATED WITH CHEMO AND ON NOVEMBER 2018, SHE GOT STEM CELL TRANSPLANT PN DR. GEORGE 05-07-19: PANCYTOPENIA. THE PATIENT RECEIVED 1 UNIT OF PACKED CELLS TODAY AND PLATELETS WELL. RISK FACTORS / RESULTS AND LOCATION IN MR: H&P 05-05-19: LEUKEMIA, TREATED WITH CHEMO AND ON NOVEMBER 2018, SHE GOT STEM CELL TRANSPLANT TREATMENT / RESULTS AND LOCATION IN MR: PN DR. GEORGE 05-07-19: PANCYTOPENIA. THE PATIENT RECEIVED 1 UNIT OF PACKED CELLS TODAY AND PLATELETS WELL. (This form is maintained as a part of the permanent medical record) 2014 [employer]. All Rights Reserved [email or web address] Office: [phone] [facility]
[2019-05-09] MEDS: traMADol HCl 50 MG TAB PO PRN (15:24)
--- NOTE | 2019-05-09 17:58 | OP ---
DATE OF PROCEDURE: 05/09/2019 PROCEDURES PERFORMED: Inferior vena cave biography with ultrasonographic guidance Robbie KILPATRICK inferior vena cava filter placement under fluoroscopy. PREOPERATIVE DIAGNOSES: Hip fracture with high risk of deep venous thrombosis and contraindication to anticoagulation. POSTOPERATIVE DIAGNOSES: Hip fracture with high risk of deep venous thrombosis and contraindication to anticoagulation. ANESTHESIA: 1% lidocaine, local anesthesia. INDICATIONS: The patient is a frail 68-year-old woman, who a few months ago underwent stem cell transplantation to treat chronic myelogenous leukemia. She has had ORIF of hip fracture and her persistent thrombocytopenia makes the use of anticoagulation quite problematic and the admitting services requested that I place a vena cava filter. FINDINGS: The renal veins were at the level of the top of L2. The Cook filter was placed at the level of the bottom of L2. Fluoroscopy time was 8.7 minutes. Contrast was 19 mL. NARRATIVE REPORT: After informed consent was obtained, the patient was taken to the label pinker and placed in supine position on the cardiac cath table. This was associated with significant amount of discomfort from the patient's recent hip fracture and 25 mcg of fentanyl was administered to address that while her lower abdomen and groins were being prepped and draped in sterile fashion. Ultrasonography was used in the left groin to identify the femoral artery and vein and confirm compressibility of the femoral vein. 1% lidocaine was used to infiltrate the skin and subcutaneous tissues at that level and under fluoroscopic and under ultrasonographic guidance. The common femoral vein was cannulated with a large-bore needle and a guidewire was placed. Venous positioning of the wire and the cava was confirmed by fluoroscopy. A small skin cate was made at the puncture site in the groin and then an introducer sheath and dilator were inserted. Contrast was injected confirming appropriate size of the vena cava. However, even with repositioning and multiple injections, it was not possible to clearly identify the origin of either renal vein. A curved catheter and guidewire were used to probe the right and left lateral aspects of the vena cava, identifying the origin disease of the renal veins essentially opposite to each other at the level of the top of L2. Once that had been ascertained, the wire and catheter were removed and the tip of the introducer sheath was placed at the bottom of L2 and the filter was advanced through the introducer sheath when it reach the tip of the sheath. The sheath was withdrawn to deploy the filter. The sheath was removed and hemostasis achieved with direct pressure and she was taken to the recovery area in stable condition. Job ID: [id number]
[2019-05-09] MEDS ORDERED: Ibuprofen 600 MG TAB PO PRN (17:59)
[2019-05-10] MEDS: Acetaminophen 500 MG TAB PO SCH ×5 (00:11→23:27)
--- NOTE | 2019-05-10 00:48 | PRG ---
DATE OF SERVICE: 05/09/2019 SUBJECTIVE: This is a 68-year-old female, who presented to [facility] status post fall. The patient is now status post IVC filter replacement with Dr. Mejia earlier today. Upon my evaluation this evening, the patient vocalized no complaint, but is rather sleepy. Family reports that the patient was in excruciating amount of pain when she returned from her IVC filter placement and therefore multiple requests were made for pain medication for breakthrough pain. OBJECTIVE: VITAL SIGNS: Reviewed and as documented in the electronic medical record. GENERAL: Elderly-appearing female, in no acute distress, resting in bed. She is on 0.5 L O2 nasal cannula. PULMONARY: Normal work of breathing. Symmetric rise. CARDIOVASCULAR: Regular rate and rhythm. GASTROINTESTINAL: Abdomen is soft, nontender, nondistended. MUSCULOSKELETAL: Moves all extremities x4. NEUROLOGIC: No focal deficit is noted. The patient has a GCS of 14, E2 V5 M6. She is alert and oriented x4. However, she is rather drowsy and quickly falls back to sleep after answering questions. ASSESSMENT: 1. Status post fall. 2. Subarachnoid hematoma. 3. Left hip fracture, status post repair. 4. Left distal radius fracture, nonoperative. 5. History of leukemia. 6. Pancytopenia secondary to above. 7. History of hypertension. 8. Status post IVC filter placement. 9. Acute traumatic pain. PLAN: We will hold narcotic pain medication at this time. The patient's platelet counts are relatively low, which puts her at increased risk for bleeding. However, patient does not have any focal deficits at this time and she did receive multiple rounds of pain medication earlier today. If she does not continue to improve with withholding her narcotic pain medication, we will check an ABG and CT brain as well as notify Neurosurgery. Morning labs. Patient is potentially pending discharge to inpatient rehab if she is medically stable in the morning. Plan of care was discussed with patient's family at bedside and nurse. All questions were answered prior to end of this dictation. Job ID: [id number]
[2019-05-10] MEDS: traMADol HCl 50 MG TAB PO SCH ×5 (02:57→22:53)
[2019-05-10 05:13] LABS: Platelet Count 27 thou/uL (130-400)
[2019-05-10 06:00] LABS: #Lymphocytes 0.4 thou/uL (1.20-3.40); #Monocytes 0.5 thou/uL (0.11-0.59); #Neutrophils 3.3 thou/uL (1.40-6.50); %Eosinophils 0.5 % (0.0-10.0); %Lymphocytes 10.1 % (21.0-51.0); %Monocytes 10.8 % (0.0-10.0); %Neutrophils 78.6 % (42.0-75.0); Anisocytosis SLIGHT = 6-15 cells (100X) (0-5/hpf); Hemoglobin 6.8 g/dL (12.0-16.0); MDiff Complete? YES; Macrocytosis SLIGHT = 6-15 cells (100X) (0-5/hpf); Mean Corpuscular HGB CONC 32.5 g/dL (32.0-36.0); Mean Corpuscular Hemoglobin 33.8 pg (27.0-31.0); Mean Platelet Volume 10.1 fL (7.4-10.4); Platelet Morphology Comment Appears Decreased; Polychromasia SLIGHT = 2-3 cells (100X) (0-2/hpf); RBC Distribution Width 18.2 % (11.5-14.5); Red Blood Cell (RBC) Count 2.02 mill/uL (4.20-5.40); Tear Drops SLIGHT = 2-5 cells (100X) (0-1/hpf); White Blood Cell (WBC) Count 4.2 thou/uL (4.8-10.8)
[2019-05-10] MEDS: Eltrombopag Olamine [Promacta] 50 MG PO SCH (07:40)
[2019-05-10] MEDS: Mometasone/Formoterol 120 PUFF INHALER INH SCH ×2 (08:23→18:51)
--- NOTE | 2019-05-10 10:11 | CT ---
CT BRAIN WITHOUT IV CONTRAST: HISTORY: Mental status change. Injury from a fall on 05/05/2019 with subarachnoid hemorrhage. FINDINGS: There is some persistent right frontal subarachnoid hemorrhage. There also appear to be some very sub tle subarachnoid hemorrhagic changes, which have crossed the midline, to the left side. No focal mass or midline shift. No evidence for other extraaxial hemorrhage. No significant acute edema. IMPRESSION: Subarachnoid hemorrhagic changes. The hemorrhage in the right frontal region is somewhat less dense, although there is some minimal scattered subarachnoid hemorrhagic changes which have crossed the midl ine now. No evidence for a new hemorrhage. POS: [facility]
[2019-05-10] MEDS: valACYclovir 500 MG TAB PO SCH (10:19)
[2019-05-10] MEDS: Magnesium Oxide 400 MG TAB PO SCH ×3 (10:20→21:50)
[2019-05-10] MEDS: Sulfameth/Trimethoprim SS 400-80MG TAB PO SCH (10:21)
[2019-05-10] MEDS: Tacrolimus 0.5 MG CAP PO SCH ×2 (10:22→21:50)
[2019-05-10] MEDS: Montelukast Sodium 10 mg Tablet PO SCH (10:23)
[2019-05-10] MEDS: Gabapentin 300 MG CAP PO SCH ×3 (10:24→21:51)
[2019-05-10] MEDS: predniSONE 5 MG TAB PO SCH (10:26)
[2019-05-10] MEDS: Ferrous Sulfate 325 MG TAB PO SCH ×2 (10:26→17:43)
[2019-05-10] MEDS: Folic Acid 1 MG TAB PO SCH (10:27)
[2019-05-10] MEDS: Ascorbic Acid 500 mg Chewable Tablet PO SCH ×2 (10:27→21:50)
[2019-05-10] MEDS: Thiamine 100 MG TAB PO SCH (10:27)
[2019-05-10] MEDS: Ursodiol 300 MG CAP PO SCH ×2 (10:31→21:51)
[2019-05-10] MEDS: Senokot S 8.6-50 MG TAB PO SCH ×2 (17:41→21:50)
[2019-05-10] MEDS: Polyethylene Glycol 3350 17 GM Packet PO SCH (17:41)
--- NOTE | 2019-05-10 20:35 | PRG ---
DATE OF SERVICE: 05/10/2019 SUBJECTIVE: The patient remains on the surgical floor. She is postop day #5 status post open reduction and internal fixation of right intertrochanteric femur fracture. The patient is also postop day #1 status post IVC filter placement. The patient is somewhat slow to answer questions this morning. When asked questions, she repetitively states her name. No other focal deficits noted. The patient follows commands. GCS 14, -1 for confusion. The patient's daughter states she was very sleepy last night and reports she appears more awake today. OBJECTIVE: VITAL SIGNS: Blood pressure 135/80, SpO2 of 96% on room air, respirations 16, pulse 99, temperature 98.6. GENERAL: Elderly appearing female, no acute distress, resting in bed, repetitive speech. PULMONARY: Equal chest rise and fall, bilateral breath sounds clear. No wheezing, rales, or rhonchi. CARDIOVASCULAR: Regular rate, regular rhythm. GI: Abdomen is soft, nontender, nondistended. MUSCULOSKELETAL: Moves all extremities. No focal deficits. Strength 5/5 in all 4 extremities. NEUROLOGIC: GCS 14. E4 V4 M6. Cranial nerves 2 through 12 intact. Repetitive with speech. LABORATORY DATA: WBC 4.2, RBC 2.02, hemoglobin 6.8, hematocrit 21, platelets 27. DIAGNOSTIC DATA: Brain CT; subarachnoid hemorrhagic changes, hemorrhage in the right frontal region is somewhat less dense. There is no evidence of a new hemorrhage. ASSESSMENT: 1. Status post fall. 2. Subarachnoid hemorrhage. 3. Left hip fracture, status post repair. 4. Left distal radius fracture, nonoperative. 5. History of leukemia. 6. Pancytopenia secondary to above. 7. History of hypertension. 8. Status post IVC filter placement. 9. Acute traumatic pain. PLAN: Continue supportive care. We will transfuse 1 unit packed red blood cells as the patient's hemoglobin is 6.8. Continue physical/occupational therapy. The patient will most likely be discharged to inpatient rehab in [place] tomorrow morning as long as her hemoglobin is stable at 7.0. The plan was discussed with Dr. Kennedy, who agrees. Job ID: [id number]
[2019-05-10 20:46] LABS: Hemoglobin 9.2 g/dL (12.0-16.0)
--- NOTE | 2019-05-11 00:33 | PRG ---
DATE OF SERVICE: 05/10/2019 SUBJECTIVE: Patient was seen this evening, sitting up in bed. She was alert and awake, and having normal conversations. Patient's family at bedside reports this is the most alert that she has been in quite some time. They are attributing this to overmedication with tramadol. The patient reports that she does have some hip pain and would like to have a bowel movement as well. She did receive 1 unit of packed red blood cells today for hemoglobin of 6.8. OBJECTIVE: GENERAL: Elderly female, lying in bed, alert and awake with no signs of acute distress. PULMONARY: Equal chest rise and fall. No signs of acute respiratory distress. ASSESSMENT: 1. Status post fall. 2. Subarachnoid hemorrhage, stable. 3. Left hip fracture, status post repair. 4. Left distal radius fracture, nonoperative. 5. Pancytopenia, stable. 6. Acute blood loss anemia, improved. 7. History of leukemia and hypertension. PLAN: Continue current diet. We will make the tramadol p.r.n. only. Continue other adjunctive pain medications. Continue home medications as previously started. We will repeat H and H tomorrow. Sutures in the patient's left brow to be discontinued by nursing. Patient is pending placement at acute rehab facility. Job ID: [id number]
[2019-05-11] MEDS: traMADol HCl 50 MG TAB PO PRN (02:09)
[2019-05-11 06:07] LABS: #Lymphocytes 0.5 thou/uL (1.20-3.40); #Monocytes 0.6 thou/uL (0.11-0.59); #Neutrophils 3.1 thou/uL (1.40-6.50); %Basophils 0.5 % (0.0-1.0); %Eosinophils 0.7 % (0.0-10.0); %Lymphocytes 11.3 % (21.0-51.0); %Monocytes 12.9 % (0.0-10.0); %Neutrophils 74.6 % (42.0-75.0); Hemoglobin 8.5 g/dL (12.0-16.0); MDiff Complete? YES; Mean Corpuscular HGB CONC 31.2 g/dL (32.0-36.0); Mean Corpuscular Hemoglobin 30.5 pg (27.0-31.0); Mean Corpuscular Volume 97.7 fL (78.0-98.0); Mean Platelet Volume 11.2 fL (7.4-10.4); Platelet Count 24 thou/uL (130-400); Platelet Morphology Comment Appears Decreased; Polychromasia SLIGHT = 2-3 cells (100X) (0-2/hpf); RBC Distribution Width 19.6 % (11.5-14.5); Red Blood Cell (RBC) Count 2.78 mill/uL (4.20-5.40); White Blood Cell (WBC) Count 4.2 thou/uL (4.8-10.8)
[2019-05-11] MEDS: Acetaminophen 500 MG TAB PO SCH (06:28)
[2019-05-11] MEDS: Eltrombopag Olamine [Promacta] 50 MG PO SCH (06:28)
[2019-05-11] MEDS: Mometasone/Formoterol 120 PUFF INHALER INH SCH (07:02)
[2019-05-11 07:52] VITALS: BP 149/83; TEMP 98
[2019-05-11] MEDS: Polyethylene Glycol 3350 17 GM Packet PO SCH (09:35)
[2019-05-11] MEDS: Magnesium Oxide 400 MG TAB PO SCH (09:35)
[2019-05-11] MEDS: Ascorbic Acid 500 mg Chewable Tablet PO SCH (09:35)
[2019-05-11] MEDS: Senokot S 8.6-50 MG TAB PO SCH (09:35)
[2019-05-11] MEDS: Folic Acid 1 MG TAB PO SCH (09:36)
[2019-05-11] MEDS: Sulfameth/Trimethoprim SS 400-80MG TAB PO SCH (09:36)
[2019-05-11] MEDS: predniSONE 5 MG TAB PO SCH (09:36)
[2019-05-11] MEDS: Ursodiol 300 MG CAP PO SCH (09:37)
[2019-05-11] MEDS: Thiamine 100 MG TAB PO SCH (09:37)
[2019-05-11] MEDS: Tacrolimus 0.5 MG CAP PO SCH (09:37)
[2019-05-11] MEDS: Montelukast Sodium 10 mg Tablet PO SCH (09:37)
[2019-05-11] MEDS: Ferrous Sulfate 325 MG TAB PO SCH (09:37)
[2019-05-11] MEDS: valACYclovir 500 MG TAB PO SCH (09:37)
== END 2019-05-11 11:02 | DRG 956 ==
LOC: ERS 15:20 → SURG A 22:21
PROVIDERS: ADMIT Specialist; ATTEND Specialist
PROC: 0HQ1XZZ Repair Face Skin, External Approach (ICD-10-PCS; 2019-05-05)
PROC: 30233R1 Transfusion of Nonautologous Platelets into Peripheral Vein, Percutaneous Approach (ICD-10-PCS; 2019-05-05)
PROC: 0QS704Z Reposition Left Upper Femur with Internal Fixation Device, Open Approach (ICD-10-PCS; 2019-05-06)
PROC: 30233N1 Transfusion of Nonautologous Red Blood Cells into Peripheral Vein, Percutaneous Approach (ICD-10-PCS; 2019-05-06)
PROC: 06H03DZ Insertion of Intraluminal Device into Inferior Vena Cava, Percutaneous Approach (ICD-10-PCS; principal; 2019-05-09)
PROC: B2101ZZ Fluoroscopy of Single Coronary Artery using Low Osmolar Contrast (ICD-10-PCS; 2019-05-09)
DX: S06.6X0A Traumatic subarachnoid hemorrhage without loss of consciousness, initial encounter (principal); S72.145A Nondisplaced intertrochanteric fracture of left femur, initial encounter for closed fracture; D61.810 Antineoplastic chemotherapy induced pancytopenia; S52.532A Colles' fracture of left radius, initial encounter for closed fracture; Z94.84 Stem cells transplant status; C95.90 Leukemia, unspecified not having achieved remission; D62 Acute posthemorrhagic anemia; D69.6 Thrombocytopenia, unspecified; I10 Essential (primary) hypertension; R40.2362 Coma scale, best motor response, obeys commands, at arrival to emergency department; R40.2142 Coma scale, eyes open, spontaneous, at arrival to emergency department; R40.2252 Coma scale, best verbal response, oriented, at arrival to emergency department; S01.81XA Laceration without foreign body of other part of head, initial encounter; G89.11 Acute pain due to trauma; W01.0XXA Fall on same level from slipping, tripping and stumbling without subsequent striking against object, initial encounter; Y93.01 Activity, walking, marching and hiking; Y92.89 Other specified places as the place of occurrence of the external cause; Z90.49 Acquired absence of other specified parts of digestive tract
CPT/HCPCS: 12014; 29125; 36415; 36416; 36430; 37191; 70450; 72170; 75825; 76000; 76942; 80048; 80053; 82533; 83735; 84100; 85007; 85025; 85027; 85610; 85730; 86850; 86900; 86901; 94760; 96374; 96375; 96376; C1713; C1769; C1880; G0390; J0690; J1644; J1720; J1885; J2001; J2270; J2370; J2405; J2704; J3010; J3360; J3475; J7507; J7512; P9016; P9035; P9040; S0028